=== PATIENT | female | born 1955 | race American Indian/Alaskan Native ===

== ENCOUNTER 2020-01-24 00:06 | Emergency (ER) | payer OTHER ==
[2020-01-24 00:27] VITALS: BP 172/72
[2020-01-24] MEDS ORDERED: FAMOTIDINE 20 MG/2 ML INJ IV ONE (02:08)
[2020-01-24] MEDS ORDERED: methylPREDNISolone Sod Succinate 125 MG/2 ML INJ IV ONE (02:08)
--- NOTE | 2020-01-24 02:15 | Emergency Department Report ---
HPI - General Chief Complaint: Allergic Reaction PUI?: No Time Seen by Provider: 01/24/20 02:08 - HPI HPI: Room 39 The patient is a 64-year-old female present with a chief complaint of allergic reaction. The patient has a known allergy to strep and states she ate some strep anyway at approximately 18: 00. Patient states sometimes she can get away with it if she takes Benadryl. The patient states she had taken a Benadryl but she began to itch "everywhere." Patient denies shortness of breath or feeling as though her throat is closing. Patient currently states the itching has resolved after taking Benadryl prior to arrival. Patient currently denies complaints ED Past Medical Hx - Past Medical History Previous Medical History?: Yes Hx Hypertension: Yes Hx GERD: Yes - Surgical History Past Surgical History?: Yes Additional Surgical History: tubal ligation, Rt foot bone spur removal - Family History Family history: no significant - Social History Smoking Status: Never Smoker Substance Use Type: None - Medications Home Medications: Home Medications Medication Instructions Recorded Confirmed Last Taken Type Mv,Tarik,Min/Iron/Folic Acid/Lut 1 tab PO DAILY 09/14/14 09/14/14 09/14/14 History [Complete Multi Tablet] EPINEPHrine [Epipen 2-Rashaun] 0.3 mg IM ONCE PRN #0.6 ml 01/24/20 Unknown Rx Famotidine [Pepcid] 20 mg PO BID #6 tablet 01/24/20 Unknown Rx Prednisone [predniSONE 10 mg 10 mg PO .TAPER #1 tab.ds.pk 01/24/20 Unknown Rx (6-Day Pack, 21 Tabs)] diphenhydrAMINE [Benadryl CAP] 50 mg PO Q6HR #24 capsule 01/24/20 Unknown Rx ED Review of Systems ROS: Stated complaint: ALLERGIC REACTION Other details as noted in HPI Skin: pruritus Physical Exam - Physical Exam Vital Signs: Vital Signs 01/24/20 00:19 Temperature 98.4 F Pulse Rate 78 Respiratory 18 Rate Blood Pressure 172/72 O2 Sat by Pulse 99 Oximetry Physical Exam: GENERAL: The patient is well-developed well-nourished female sitting on stretcher not appearing to be in acute distress. [] HEENT: Normocephalic. Atraumatic. Extraocular motions are intact. Patient has moist mucous membranes. Oropharynx clear NECK: Supple. Trachea midline. No stridor CHEST/LUNGS: Clear to auscultation. There is no respiratory distress noted. HEART/CARDIOVASCULAR: Regular. There is no tachycardia. There is no gallop rub or murmur. ABDOMEN: Abdomen is soft, nontender. Patient has normal bowel sounds. There is no abdominal distention. SKIN: There is no rash. There is no edema. There is no diaphoresis. NEURO: The patient is awake, alert, and oriented. The patient is cooperative. The patient has no focal neurologic deficits. The patient has normal speech and gait. MUSCULOSKELETAL: There is no evidence of acute injury. ED Course Vital Signs 01/24/20 00:19 Temperature 98.4 F Pulse Rate 78 Respiratory 18 Rate Blood Pressure 172/72 O2 Sat by Pulse 99 Oximetry ED Medical Decision Making - Differential Diagnosis Allergic reaction Critical care attestation.: If time is entered above; I have spent that time in minutes in the direct care of this critically ill patient, excluding procedure time. ED Disposition Clinical Impression: Acute allergic reaction Disposition: DC-01 TO HOME OR SELFCARE Is pt being admited?: No Does the pt Need Aspirin: No Condition: Stable Instructions: Food Allergy (ED) Additional Instructions: Return to the emergency department should you develop worsening symptoms, inability to tolerate food or liquids, high fever or any other concerns Prescriptions: diphenhydrAMINE [Benadryl CAP] 50 mg PO Q6HR #24 capsule EPINEPHrine [Epipen 2-Rashaun] 0.3 mg IM ONCE PRN #0.6 ml PRN Reason: Anaphylaxis Famotidine [Pepcid] 20 mg PO BID #6 tablet Prednisone [predniSONE 10 mg (6-Day Pack, 21 Tabs)] 10 mg PO .TAPER #1 tab.ds.pk Referrals: PRIMARY CARE, [Primary Care Provider] - 3-5 Days BRIGITTE PENALOZA MD [Staff Physician] - 3-5 Days (Dr Penaloza is an it systems analyst. Please follow-up with her for further evaluation) Time of Disposition: 02:19
== END 2020-01-24 02:30 | disposition home or self-care (01) ==
LOC: ED 01:27
DX: T78.49XA Other allergy, initial encounter (principal); I10 Essential (primary) hypertension; K21.9 Gastro-esophageal reflux disease without esophagitis; Z98.51 Tubal ligation status; Z91.013 Allergy to seafood; Z79.899 Other long term (current) drug therapy; Z98.890 Other specified postprocedural states; X58.XXXA Exposure to other specified factors, initial encounter
CPT/HCPCS: 99282; J2930

== ENCOUNTER 2020-02-10 09:20 | Observation (INO) | payer OTHER ==
--- NOTE | 2020-02-10 11:02 | Emergency Department Report ---
ED Abdominal Pain HPI - General Chief Complaint: Abdominal Pain Stated Complaint: ABD PAIN Time Seen by Provider: 02/10/20 10:58 Source: patient Mode of arrival: Ambulatory Limitations: No Limitations - History of Present Illness Initial Comments: 64-year-old -[place] female comes in complaining of upper abdominal pain and nausea since 3:30 AM that woke her up. Patient denies any fever but admits to nausea vomiting no diarrhea no dysuria no vaginal discharge. Patient reports that she has had normal bowel movement. She does admit to urinary frequency and today. Patient has a past medical history of hypertension and is currently on lisinopril. MD Complaint: abdominal pain Location: epigastric Severity: moderate Consistency: constant Improves With: nothing Worsens With: nothing Associated Symptoms: nausea, vomiting. denies: diarrhea, fever, chills, constipation, dysuria, hematemesis, hematochezia, hematuria - Related Data Home Medications Medication Instructions Recorded Confirmed Last Taken Lovastatin [Altoprev] 20 mg PO QDAY 02/10/20 02/10/20 Unknown lisinopriL [Zestril TAB] 10 mg PO QDAY 02/10/20 02/10/20 Unknown Allergies Allergy/AdvReac Type Severity Reaction Status Date / Time shrimp Allergy Itching Verified 01/24/20 00:47 ED Review of Systems ROS: Stated complaint: ABD PAIN Other details as noted in HPI Comment: All other systems reviewed and negative ED Past Medical Hx - Past Medical History Previous Medical History?: Yes Hx Hypertension: Yes Hx Diabetes: No Hx GERD: Yes Hx Renal Disease: No Hx Sickle Cell Disease: No Hx Seizures: No Hx Asthma: No Hx COPD: No Hx Tuberculosis: No Hx Dementia: No Hx HIV: No - Surgical History Past Surgical History?: Yes Additional Surgical History: tubal ligation, Rt foot bone spur removal - Social History Smoking Status: Never Smoker Substance Use Type: None - Medications Home Medications: Home Medications Medication Instructions Recorded Confirmed Last Taken Type Lovastatin [Altoprev] 20 mg PO QDAY 02/10/20 02/10/20 Unknown History lisinopriL [Zestril TAB] 10 mg PO QDAY 02/10/20 02/10/20 Unknown History ED Physical Exam - General Limitations: No Limitations General appearance: alert, in no apparent distress - Head Head exam: Present: atraumatic, normocephalic - Eye Eye exam: Present: normal appearance - ENT ENT exam: Present: mucous membranes moist - Respiratory Respiratory exam: Present: normal lung sounds bilaterally. Absent: respiratory distress - Cardiovascular Cardiovascular Exam: Present: regular rate, normal rhythm. Absent: systolic murmur, diastolic murmur, rubs, gallop - GI/Abdominal GI/Abdominal exam: Present: soft, tenderness. Absent: distended - Extremities Exam Extremities exam: Present: normal inspection - Back Exam Back exam: Present: normal inspection, full ROM - Neurological Exam Neurological exam: Present: alert, oriented X3 - Psychiatric Psychiatric exam: Present: normal affect, normal mood - Skin Skin exam: Present: warm, dry, intact, normal color. Absent: rash ED Course Vital Signs 02/10/20 02/10/20 02/10/20 09:26 14:48 17:23 Temperature 97.9 F 97.9 F Pulse Rate 81 81 92 H Respiratory 16 16 16 Rate Blood Pressure 147/69 173/80 Blood Pressure 173/81 [Left] O2 Sat by Pulse 100 100 100 Oximetry - Reevaluation(s) Reevaluation #1: 02/10/20 14:16 Contacted ER real estate legal secretary to varinder Robert surgeon Reevaluation #2: 02/10/20 15:[address] Robert and she is aware of the patient ED Medical Decision Making - Lab Data Result diagrams: 02/10/20 11:36 02/10/20 11:36 - Radiology Data Radiology results: report reviewed Referring Physician:HARMEET BRODERICKPatient Name:SERAFIN BECKHAMPatient ID:[id number] of :[id number]:FemaleAccession:[id number] Date:[id number] Status:Finalized Findings [facility] [address] [place] [address] Cat Scan Report Signed Patient: SERAFIN BECKHAM MR#: [id number] 06 : 1955 Acct:[id number] Age/Sex: 64 / F ADM Date: 02/10/20 Loc: ED Attending Dr: Ordering Physician: FAROOQ URRUTIA Date of Service: 02/10/20 Procedure(s): CT abdomen pelvis w con Accession Number(s): [id number] cc: FAROOQ URRUTIA CT ABDOMEN AND PELVIS WITH CONTRAST HISTORY: Acute mid abdominal pain. COMPARISON: None TECHNIQUE: Routine abdominal and pelvic CT exam performed following intravenous contrast administration. The patient received 100 mL of IV Omnipaque 300. All CT scans at this location are performed using CT dose reduction for ALARA by means of automated exposure co ntrol. FINDINGS: CT ABDOMEN: Lung Bases: No significant abnormality. Liver: There are multiple tiny hepatic cysts. Biliary: No significant abnormality. Spleen: No significant abnormality. Unenlarged. Pancreas: No significant abnormality. Adrenals: No significant abnormality. Kidneys: Tiny simple cyst in the lower right kidney. No acute renal abnormality. Lymphatics: No lymphadenopathy. Vasculature: No significant abnormality. Bowel/Peritoneum: There is an abnormal loop of small bowel in the right lower abdomen which is mildly distended. The proximal and distal small bowel is collapsed. There is moderate constipation in the colon. The appendix is normal. CT PELVIC: : No significant abnormality. Lymphatics: No lymphadenopathy. Osseous Structures: No aggressive appearing osseous lesions. Additional Findings: None IMPRESSION: 1. Abnormal solitary distended loop of small bowel in the right lower abdomen with nondistention of the more proximal and distal small bowel. Findings raise concern for possible mild/early closed-loop obstruction. 2. Moderate constipation. Signer Name: Gurvinder Matos MD Signed: 02/10/2020 2:03 PM Workstation Name: [id number] - Medical Decision Making 64-year-old -[place] female comes in complaining of upper abdominal pain and nausea since 3:30 AM that woke her up. Patient denies any fever but admits to nausea vomiting no diarrhea no dysuria no vaginal discharge. Patient reports that she has had normal bowel movement. She does admit to urinary frequency and today. Patient has a past medical history of hypertension and is currently on lisinopril. CBC, CMP, lipase urinalysis. Spoke with Dr. Robert general surgeon. She was able to review over CT scans recommend observation and she will consult again on the floor. Discussed case with Dr. Thomas as well as Dr. Corets for a observation admission. Critical care attestation.: If time is entered above; I have spent that time in minutes in the direct care of this critically ill patient, excluding procedure time. ED Disposition Clinical Impression: Small bowel obstruction, Hyponatremia Disposition: 09 OP ADMIT IP TO THIS HOSP Is pt being admited?: Yes Does the pt Need Aspirin: Yes Condition: Stable
[2020-02-10 12:16] LABS: Hematocrit 39.1 % (30.3-42.9); Hemoglobin 12.9 gm/dl (10.1-14.3); Mean Corpuscular HGB Conc 33 % (30-34); Mean Corpuscular Volume 84 fl (79-97); Platelet Count 206 K/mm3 (140-440); Red Blood Count 4.68 M/mm3 (3.65-5.03); Red Cell Distribution Width 13.6 % (13.2-15.2)
[2020-02-10 12:31] LABS: Alanine Aminotransferase 15 units/L (7-56); Albumin 4.4 g/dL (3.9-5); BUN/Creatinine Ratio 21; Blood Urea Nitrogen 15 mg/dL (7-17); Calcium 9.6 mg/dL (8.4-10.2); Hemolysis Index 11
[2020-02-10 13:19] LABS: Bacteria,Urine 1+ /HPF (Negative); Bilirubin,Urine NEG (Negative); Blood,Urine NEG (Negative); Color,Urine Yellow (Yellow); Mucus,Urine FEW /HPF; Protein,Urine <15 mg/dL mg/dL (Negative); Urobilinogen,Urine < 2.0 mg/dL (<2.0)
--- NOTE | 2020-02-10 14:07 | Cat Scan Report ---
CT ABDOMEN AND PELVIS WITH CONTRAST HISTORY: Acute mid abdominal pain. COMPARISON: None TECHNIQUE: Routine abdominal and pelvic CT exam performed following intravenous contrast administrat ion. The patient received 100 mL of IV Omnipaque 300. All CT scans at this location are performed usi ng CT dose reduction for ALARA by means of automated exposure control. FINDINGS: CT ABDOMEN: Lung Bases: No significant abnormality. Liver: There are multiple tiny hepatic cysts. Biliary: No significant abnormality. Spleen: No significant abnormality. Unenlarged. Pancreas: No significant abnormality. Adrenals: No significant abnormality. Kidneys: Tiny simple cyst in the lower right kidney. No acute renal abnormality. Lymphatics: No lymphadenopathy. Vasculature: No significant abnormality. Bowel/Peritoneum: There is an abnormal loop of small bowel in the right lower abdomen which is mildly distended. The proximal and distal small bowel is collapsed. There is moderate constipation in the c olon. The appendix is normal. CT PELVIC: : No significant abnormality. Lymphatics: No lymphadenopathy. Osseous Structures: No aggressive appearing osseous lesions. Additional Findings: None IMPRESSION: 1. Abnormal solitary distended loop of small bowel in the right lower abdomen with nondistention of t he more proximal and distal small bowel. Findings raise concern for possible mild/early closed-loop o bstruction. 2. Moderate constipation. Signer Name: Gurvinder Matos MD Signed: 02/10/2020 2:03 PM Workstation Name: [id number]
[2020-02-10] MEDS ORDERED: SODIUM CHLORIDE 0.9% 1000 ML 1,000 ML IV ONE (14:17)
[2020-02-10] MEDS ORDERED: ONDANSETRON 4 MG/2 ML INJ IV ONE (14:17)
[2020-02-10 14:30] LABS: Basophils % (Manual) 0 % (0.0-1.8); Eosinophils % (Manual) 0 % (0.0-4.3); Platelet Estimate Consistent w Auto; RBC Morphology Normal; Total Cells Counted 100
--- NOTE | 2020-02-10 16:47 | History and Physical Report ---
History of Present Illness Chief complaint: My stomach hurts real bad History of present illness: 64 YO Female with HTN, GERD presents to ED for evaluation. Pt states that she has experienced abdominal pain over the past 1 day. Patient states that her pain awoke her from sleep at approximately 0330 hrs. this a.m. Patient reports that her pain is 7/10, constant, associated with nausea, without exacerbating or alleviating factors. Patient acknowledges flatus as well as concomitant bowel movement. Patient transported to [facility] via private vehicle for further care and evaluation. Patient seen and evaluated in the emergency department. Lab and imaging studies reviewed. Patient underwent CT scan of the abdomen and pelvis and was found to have a partial small bowel obstruction with suspicion of closed-loop bowel obstruction. Patient placed in observation status and admitted to surgical floor. Surgical team consulted in ED. Patient denies fever, chills, chest pain, palpitation, productive cough, skin rash, recent ill contacts, ingestion of food/water from new or different sources, bright red blood per rectum, hematemesis, or known exposure to COVID-19. No prior admission for review. All medication listed at time of admission has been reconciled. Advanced care planning conducted in the emergency department. Past History Past Medical History: GERD, hypertension, other (See HPI) Past Surgical History: Other (Tubal ligation, right foot surgery) Social history: . denies: smoking, alcohol abuse, prescription drug abuse Family history: diabetes, hypertension Medications and Allergies Allergies Allergy/AdvReac Type Severity Reaction Status Date / Time shrimp Allergy Itching Verified 01/24/20 00:47 Home Medications Medication Instructions Recorded Confirmed Last Taken Type Mv,Tarik,Min/Iron/Folic Acid/Lut 1 tab PO DAILY 09/14/14 09/14/14 09/14/14 History [Complete Multi Tablet] EPINEPHrine [Epipen 2-Rashaun] 0.3 mg IM ONCE PRN #0.6 ml 01/24/20 Unknown Rx Famotidine [Pepcid] 20 mg PO BID #6 tablet 01/24/20 Unknown Rx Prednisone [predniSONE 10 mg 10 mg PO .TAPER #1 tab.ds.pk 01/24/20 Unknown Rx (6-Day Pack, 21 Tabs)] diphenhydrAMINE [Benadryl CAP] 50 mg PO Q6HR #24 capsule 01/24/20 Unknown Rx Review of Systems Constitutional: no weight loss, no weight gain, no fever, no chills Ears, nose, mouth and throat: no ear pain, no ear discharge, no tinnitis, no decreased hearing, no nose pain, no nasal congestion Breasts: no change in shape, no swelling, no mass Cardiovascular: no chest pain, no orthopnea, no palpitations, no rapid/irregular heart beat Respiratory: no cough, no cough with sputum, no excessive sputum, no dyspnea on exertion Gastrointestinal: abdominal pain, nausea, no vomiting, no diarrhea, no constipation, no BRBPR, no hematochezia, no loss of appetite, no early satiety Genitourinary Female: no dysuria, no urinary frequency, no urgency, no stress incontinence, no post void dribbling Rectal: no pain, no incontinence, no bleeding Musculoskeletal: no neck stiffness, no neck pain, no shooting arm pain, no arm numbness/tingling, no low back pain, no shooting leg pain, no leg numbness/tingling Integumentary: no rash, no pruritis, no redness, no sores, no wounds, no tamera dice Neurological: no transient paralysis, no paralysis, no weakness, no parathesias, no numbness, no tingling, no seizures Psychiatric: no anxiety, no memory loss, no change in sleep habits, no hypersomnia, no suicidal ideation Endocrine: no cold intolerance, no heat intolerance, no excessive thirst, no polydipsia, no polyuria, no excessive sweating Hematologic/Lymphatic: no easy bruising, no easy bleeding, no lymphadenopathy, no lymphedema Allergic/Immunologic: no urticaria, no allergic rhinitis, no wheezing, no anaphylaxis, no angioedema Exam - Constitutional Vitals: Temp Pulse Resp BP Pulse Ox 97.9 F 81 16 173/80 100 02/10/20 14:48 02/10/20 14:48 02/10/20 14:48 02/10/20 14:48 02/10/20 14:48 General appearance: Present: mild distress - EENT Eyes: Present: PERRL ENT: hearing intact, clear oral mucosa - Neck Neck: Present: supple, normal ROM - Respiratory Respiratory effort: normal Respiratory: bilateral: CTA - Cardiovascular Heart Sounds: Present: S1 & S2. Absent: rub, click - Extremities Extremities: pulses symmetrical, No edema Peripheral Pulses: within normal limits - Abdominal General gastrointestinal: Present: soft, tender, non-distended, normal bowel sounds. Absent: hepatomegaly, splenomegaly, mass, hernia Localized gastrointestinal: tender: diffuse Female genitourinary: Present: normal - Integumentary Integumentary: Present: clear, warm, dry - Musculoskeletal Musculoskeletal: gait normal, strength equal bilaterally - Psychiatric Psychiatric: appropriate mood/affect, intact judgment & insight - Neurologic Neurologic: CNII-XII intact, moves all extremities Results - Labs CBC & Chem 7: 02/10/20 11:36 02/10/20 11:36 Labs: Abnormal lab results 02/10/20 02/10/20 Range/Units 11:36 11:36 WBC 11.8 H (4.5-11.0) K/mm3 Seg Neuts % (Manual) 93.0 H (40.0-70.0) % Lymphocytes % (Manual) 5.0 L (13.4-35.0) % Seg Neutrophils # Man 11.0 H (1.8-7.7) K/mm3 Lymphocytes # (Manual) 0.6 L (1.2-5.4) K/mm3 Glucose 113 H (65-100) mg/dL Assessment and Plan - Patient Problems (1) Small bowel obstruction Current Visit: Yes Status: Acute Plan to address problem: CT scan abdomen and pelvis, CBC, CMP, serial physical exam, surgical team consulted in ED, order lactic acid level and repeat abdominal x-ray overnight if patient develops worsening pain, distention, or change in abdominal exam. Communication order placed for nursing staff. (2) Hyponatremia Current Visit: Yes Status: Acute Plan to address problem: IV fluid resuscitation therapy, bowel rest, BMP, repeat BMP in a.m. (3) Advance care planning Current Visit: Yes Status: Acute Plan to address problem: Patient is full code, disease education conducted, patient acknowledges understanding and agreement with care plan, +30 minutes. (4) DVT prophylaxis Current Visit: Yes Status: Acute Plan to address problem: SCD to bilateral lower extremities while in bed, patient is ambulatory.
[2020-02-10] MEDS ORDERED: ONDANSETRON 4 MG/2 ML INJ IV PRN (16:50)
[2020-02-10] MEDS ORDERED: MORPHINE 4 MG/1 ML INJ IV PRN (16:50)
[2020-02-10] MEDS ORDERED: ACETAMINOPHEN 325 MG TAB PO PRN (16:50)
--- NOTE | 2020-02-10 16:52 | Consultation ---
History of Present Illness Consult date: 02/10/20 Reason for consult: abdominal pain Chief complaint: Abdominal pain - History of present illness History of present illness: 64-year-old female who presents to the emergency room with complaints of epigast leta abdominal pain which she states is sharp and crampy which started suddenly at 330 this morning. The pain has slowly improved but only slightly over time. No alleviating or exacerbating factors. She has never had pain like this in the past. She feels like she may have eaten something that did not agree with her. She states that she had nausea and retching but no vomiting. No fevers, chills, chest pain, shortness of breath. Her last bowel movement was 2 days ago and was normal. She was passing flatus. She states that she normally has a bowel movement every day. Past History Past Medical History: GERD Past Surgical History: Other (Tubal ligation) Social history: no significant social history Family history: no significant family history Medications and Allergies Allergies Allergy/AdvReac Type Severity Reaction Status Date / Time shrimp Allergy Itching Verified 01/24/20 00:47 Home Medications Medication Instructions Recorded Confirmed Last Taken Type Mv,Tarik,Min/Iron/Folic Acid/Lut 1 tab PO DAILY 09/14/14 09/14/14 09/14/14 History [Complete Multi Tablet] EPINEPHrine [Epipen 2-Rashaun] 0.3 mg IM ONCE PRN #0.6 ml 01/24/20 Unknown Rx Famotidine [Pepcid] 20 mg PO BID #6 tablet 01/24/20 Unknown Rx Prednisone [predniSONE 10 mg 10 mg PO .TAPER #1 tab.ds.pk 01/24/20 Unknown Rx (6-Day Pack, 21 Tabs)] diphenhydrAMINE [Benadryl CAP] 50 mg PO Q6HR #24 capsule 01/24/20 Unknown Rx Review of Systems All systems: negative (10 point review of systems was performed negative except for that listed in HPI) Exam Vital Signs Temp Pulse Resp BP Pulse Ox 97.9 F 81 16 147/69 100 02/10/20 09:26 02/10/20 09:26 02/10/20 09:26 02/10/20 09:26 02/10/20 09:26 Narrative exam: Gen.: Awake, alert, oriented 3. No apparent distress ENT: Trachea midline. No lymphadenopathy. No scleral icterus or conjunctival pallor CV: S1, S2 present Respiratory: No audible wheezes Abdomen: Soft, nondistended, mild tenderness to palpation in epigastrium and mid lower abdomen. No rebound, rigidity, guarding Extremities: No clubbing, cyanosis, edema Results - Labs 02/10/20 11:36 02/10/20 11:36 Abnormal lab results 02/10/20 02/10/20 Range/Units 11:36 11:36 WBC 11.8 H (4.5-11.0) K/mm3 Seg Neuts % (Manual) 93.0 H (40.0-70.0) % Lymphocytes % (Manual) 5.0 L (13.4-35.0) % Seg Neutrophils # Man 11.0 H (1.8-7.7) K/mm3 Lymphocytes # (Manual) 0.6 L (1.2-5.4) K/mm3 Glucose 113 H (65-100) mg/dL Diabetes panel 02/10/20 Range/Units 11:36 Sodium 137 (137-145) mmol/L Potassium 4.4 (3.6-5.0) mmol/L Chloride 101.2 (98-107) mmol/L Carbon Dioxide 24 (22-30) mmol/L BUN 15 (7-17) mg/dL Creatinine 0.7 (0.7-1.2) mg/dL Glucose 113 H (65-100) mg/dL Calcium 9.6 (8.4-10.2) mg/dL AST 21 (5-40) units/L ALT 15 (7-56) units/L Alkaline Phosphatase 68 (35-129) units/L Total Protein 7.5 (6.3-8.2) g/dL Albumin 4.4 (3.9-5) g/dL Calcium panel 02/10/20 Range/Units 11:36 Calcium 9.6 (8.4-10.2) mg/dL Albumin 4.4 (3.9-5) g/dL Pituitary panel 02/10/20 Range/Units 11:36 Sodium 137 (137-145) mmol/L Potassium 4.4 (3.6-5.0) mmol/L Chloride 101.2 (98-107) mmol/L Carbon Dioxide 24 (22-30) mmol/L BUN 15 (7-17) mg/dL Creatinine 0.7 (0.7-1.2) mg/dL Glucose 113 H (65-100) mg/dL Calcium 9.6 (8.4-10.2) mg/dL Adrenal panel 02/10/20 Range/Units 11:36 Sodium 137 (137-145) mmol/L Potassium 4.4 (3.6-5.0) mmol/L Chloride 101.2 (98-107) mmol/L Carbon Dioxide 24 (22-30) mmol/L BUN 15 (7-17) mg/dL Creatinine 0.7 (0.7-1.2) mg/dL Glucose 113 H (65-100) mg/dL Calcium 9.6 (8.4-10.2) mg/dL Total Bilirubin 0.50 (0.1-1.2) mg/dL AST 21 (5-40) units/L ALT 15 (7-56) units/L Alkaline Phosphatase 68 (35-129) units/L Total Protein 7.5 (6.3-8.2) g/dL Albumin 4.4 (3.9-5) g/dL - Imaging CT scan - abdomen: report reviewed, image reviewed CT scan - pelvis: report reviewed, image reviewed Assessment and Plan 64-year-old female with abdominal pain Patient is stable with abdominal pain which has slightly improved. Most of her pain is in the mid epigastrium. She states that she is hungry. I feel that the patient has abdominal pain secondary to severe constipation and less likely a bowel obstruction. Plan: 1. Place under observation to hospitalist service 2. IV fluids 3. Aggressive bowel regimen 4. PRN nausea and pain control 5. Okay to start soft diet 6. We will follow-up in a.m. Discussed plan in detail with the patient and she is agreeable. Discussed plan with ER provider FAROOQ Gallo Thank you for this consultation. Please call with any questions or concerns.. Evaluation and treatment of this patient was during the time of the national and state emergency arising from COVID19 coronavirus pandemic. Treatment and procedures performed meet the current and available best practice and guidelines for patient during the COVID pandemic.
[2020-02-10] MEDS ORDERED: SODIUM CHLORIDE 0.9% 1000 ML 1,000 ML IV SCH (17:00)
[2020-02-10] MEDS ORDERED: MORPHINE 4 MG/1 ML INJ ONE (18:29)
[2020-02-10] MEDS ORDERED: DOCUSATE SODIUM 100 MG CAP ONE (18:30)
[2020-02-10] MEDS ORDERED: MAGNESIUM CITRATE 300 ML ORAL LIQD PO ONE (18:30)
[2020-02-10] MEDS: DOCUSATE SODIUM 100 MG CAP PO SCH ×2 (18:32→22:00)
[2020-02-10] MEDS: MAGNESIUM CITRATE 300 ML ORAL LIQD PO SCH (18:33)
[2020-02-11] MEDS: MAGNESIUM CITRATE 300 ML ORAL LIQD PO SCH ×2 (01:24→05:46)
[2020-02-11 05:06] LABS: Basophils % (Auto) 0.2 % (0.0-1.8); Eosinophils # (Auto) 0.1 K/mm3 (0.0-0.4); Eosinophils % (Auto) 0.7 % (0.0-4.3); Hematocrit 38.8 % (30.3-42.9); Hemoglobin 12.9 gm/dl (10.1-14.3); Lymphocytes # (Auto) 1.1 K/mm3 (1.2-5.4); Lymphocytes % (Auto) 10.8 % (13.4-35.0); Mean Corpuscular HGB Conc 33 % (30-34); Mean Corpuscular Volume 84 fl (79-97); Monocytes # (Auto) 0.7 K/mm3 (0.0-0.8); Monocytes % (Auto) 6.7 % (0.0-7.3); Platelet Count 204 K/mm3 (140-440); Red Cell Distribution Width 13.8 % (13.2-15.2)
[2020-02-11 05:55] LABS: Alanine Aminotransferase 16 units/L (7-56); Albumin 4.2 g/dL (3.9-5); BUN/Creatinine Ratio 16; Blood Urea Nitrogen 11 mg/dL (7-17); Calcium 9.6 mg/dL (8.4-10.2); Hemolysis Index 13
[2020-02-11] MEDS: DOCUSATE SODIUM 100 MG CAP PO SCH (11:47)
[2020-02-11 12:34] VITALS: BP 154/81
--- NOTE | 2020-02-11 12:44 | XRay Report ---
ABDOMEN 3 VIEW(S) INDICATION / CLINICAL INFORMATION: abd pain/ BOWEL OBSTRUCTION. COMPARISON: None available. FINDINGS: TUBES / LINES: None. BOWEL GAS PATTERN: No significant abnormality. FREE AIR / EXTRALUMINAL GAS: None seen. ADDITIONAL FINDINGS: No significant additional findings. IMPRESSION: 1. No significant abnormality. Signer Name: Kaleb Mccallum MD Signed: 02/11/2020 12:40 PM Workstation Name: [id number]
--- NOTE | 2020-02-11 13:20 | Progress Note ---
Assessment and Plan 64-year-old female with abdominal pain secondary to severe constipation Obstruction series 02/11/2020: Images and radiology report reviewed -unremarkable Plan: 1. Soft diet 2. Continue bowel regimen at home, Colace as needed 3. Increase water intake in diet 4. Add fiber supplement daily The above plan was discussed with the patient. She is cleared for discharge from surgical standpoint. Discussed with Dr. Richard Thank you for this consultation. Please call with any questions or concerns.. Evaluation and treatment of this patient was during the time of the national and state emergency arising from COVID19 coronavirus pandemic. Treatment and procedures performed meet the current and available best practice and guidelines for patient during the COVID pandemic. Subjective Date of service: 02/11/20 Narrative: Patient seen and examined. She states she feels much better today. She had 4 bowel movements. No hematochezia or melena. No nausea, vomiting. She denies abdominal pain. She tolerated a regular diet. Objective Vital Signs - 12hr 02/11/20 02/11/20 02/11/20 04:57 08:01 11:18 Temperature 98.3 F 97.0 F L 98.0 F Pulse Rate 79 101 H 84 Respiratory 18 20 20 Rate Blood Pressure 144/74 151/78 154/81 O2 Sat by Pulse 100 99 100 Oximetry - General physical appearance Narrative Exam: Gen.: Awake, alert, oriented 3. No apparent distress ENT: Trachea midline. No lymphadenopathy. No scleral icterus or conjunctival pallor CV: S1, S2 present Respiratory: No audible wheezes Abdomen: Soft, nondistended, nontender. No rebound, rigidity, guarding Extremities: No clubbing, cyanosis, edema - Labs 02/11/20 04:40 02/11/20 04:40 Diabetes panel 02/11/20 Range/Units 04:40 Sodium 142 (137-145) mmol/L Potassium 4.2 (3.6-5.0) mmol/L Chloride 88.9 L (98-107) mmol/L Carbon Dioxide 22 (22-30) mmol/L BUN 11 (7-17) mg/dL Creatinine 0.7 (0.7-1.2) mg/dL Glucose 93 (65-100) mg/dL Calcium 9.6 (8.4-10.2) mg/dL AST 24 (5-40) units/L ALT 16 (7-56) units/L Alkaline Phosphatase 65 (35-129) units/L Total Protein 7.6 (6.3-8.2) g/dL Albumin 4.2 (3.9-5) g/dL Calcium panel 02/11/20 Range/Units 04:40 Calcium 9.6 (8.4-10.2) mg/dL Albumin 4.2 (3.9-5) g/dL Pituitary panel 02/11/20 Range/Units 04:40 Sodium 142 (137-145) mmol/L Potassium 4.2 (3.6-5.0) mmol/L Chloride 88.9 L (98-107) mmol/L Carbon Dioxide 22 (22-30) mmol/L BUN 11 (7-17) mg/dL Creatinine 0.7 (0.7-1.2) mg/dL Glucose 93 (65-100) mg/dL Calcium 9.6 (8.4-10.2) mg/dL Adrenal panel 02/11/20 Range/Units 04:40 Sodium 142 (137-145) mmol/L Potassium 4.2 (3.6-5.0) mmol/L Chloride 88.9 L (98-107) mmol/L Carbon Dioxide 22 (22-30) mmol/L BUN 11 (7-17) mg/dL Creatinine 0.7 (0.7-1.2) mg/dL Glucose 93 (65-100) mg/dL Calcium 9.6 (8.4-10.2) mg/dL Total Bilirubin 1.90 H (0.1-1.2) mg/dL AST 24 (5-40) units/L ALT 16 (7-56) units/L Alkaline Phosphatase 65 (35-129) units/L Total Protein 7.6 (6.3-8.2) g/dL Albumin 4.2 (3.9-5) g/dL
--- NOTE | 2020-02-11 14:38 | Discharge Summary ---
Providers - Providers Date of Admission: 02/10/20 16:50 Date of discharge: 02/11/20 Attending physician: DINORAH HANNAH 02/10/20 16:37 Consult to Physician [CONS] Urgent Comment: TEXT DR MAS @1444 TO ADV OF CONSULT FOR WHITNEY' Consulting Provider: ALEJANDRA MAS Physician Instructions: Reason For Exam: Abdominal pain concern for obstruction Primary care physician: POSTAL SERVICE CLERK Hospitalization Condition: Stable Pertinent studies: Ct abdomen/pelvis abdomen xry Hospital course: 64-year-old female with h/o GERD and HTN presented to the emergency room with complaints of epigastric abdominal pain. Her last bowel movement was 2 days ago and was normal. She was passing flatus. She states that she normally has a bowel movement every day. Patient underwent CT scan of the abdomen and pelvis and was found to have a possible partial small bowel obstruction with suspicion of closed-loop bowel obstruction. GS was consulted and recommended that the patient has abdominal pain secondary to severe constipation and less likely a bowel obstruction. Repeat Obstruction series on 02/11/2020 was unremarkable. GS recommended Soft diet, Continue bowel regimen at home, Colace as needed, Increase water intake in diet and to Add fiber supplement daily. Patient was tolerating diet and had a big bowel movement this morning. Patient will be discharged home in stable condition with outpatient follow-up. Discharge diagnosis: Severe abdominal pain, likely due to severe constipation, resolved Small bowel obstruction, suspected, ruled out Hyponatremia, improved with IV fluids GERD, hypertension -continue home medications Physical exam: Gen.: Awake, alert, oriented 3. No apparent distress ENT: Trachea midline. No lymphadenopathy. No scleral icterus or conjunctival pallor CV: S1, S2 present Respiratory: No audible wheezes Abdomen: Soft, nondistended, nontender. No rebound, rigidity, guarding Extremities: No clubbing, cyanosis, edema Disposition: DC-01 TO HOME OR SELFCARE Time spent for discharge: 34 minutes Core Measure Documentation - Palliative Care Palliative Care/ Comfort Measures: Not Applicable - Core Measures Any of the following diagnoses?: none Exam - Constitutional Vitals: Temp Pulse Resp BP Pulse Ox 98.0 F 84 20 154/81 100 02/11/20 11:18 02/11/20 11:18 02/11/20 11:18 02/11/20 11:18 02/11/20 11:18 Plan Activity: advance as tolerated Weight Bearing Status: Weight Bear as Tolerated Diet: advance as tolerated Additional Instructions: continue Soft diet, bowel regimen at home, Colace as needed, Increase water intake in diet and to Add fiber supplement daily. Follow up with: PRIMARY CARE, [Referring] - 3-5 Days Prescriptions: Docusate Sodium [Colace CAP] 100 mg PO BID #30 capsule
== END 2020-02-11 16:08 | disposition home or self-care (01) ==
LOC: ED 09:20 → 3B-SURG 16:50
PROVIDERS: ADMIT Internal Medicine; ATTEND Internal Medicine
DX: K56.609 Unspecified intestinal obstruction, unspecified as to partial versus complete obstruction (principal); R11.2 Nausea with vomiting, unspecified; K59.00 Constipation, unspecified; I10 Essential (primary) hypertension; K21.9 Gastro-esophageal reflux disease without esophagitis; E87.1 Hypo-osmolality and hyponatremia; Z79.899 Other long term (current) drug therapy; Z91.013 Allergy to seafood
CPT/HCPCS: 36415; 74022; 74177; 80053; 81001; 82140; 83690; 85007; 85025; 96361; 96374; 96375; 99285; G0378; J2270; J2405; J7030; Q9967